=== PATIENT | male | born 1970 | race African-American/Black ===

== ENCOUNTER 2016-03-24 08:45 | Day surgery (SDC) | payer OTHER ==
[~2016-03-24] VITALS: Ht 182.9 cm; Wt 77.1 kg
[2016-03-24] MEDS ORDERED: ACETAMINOPHEN325 MG PO (09:47)
[2016-03-24 09:59] VITALS: BP 140/92; Ht 182.9 cm; Wt 77.1 kg
[2016-03-24 11:39] LABS: BASOPHILS 0.2 % (0.0-2.0); EOSINOPHILS 1.9 % (0-7); HEMOGLOBIN 11.9 g/dL (13.5-17.5); IMMATURE GRANULOCYTES 0.5 % (0-5); LYMPHOCYTES 43.5 % (15-50); MCH 31.2 pg (26.0-34.0); MCV 91.9 fL (80.0-100.0); MEAN PLATELET VOLUME 11.2 fL (7.4-10.4); MONOCYTES 9.5 % (2-11); NEUTROPHILS 44.4 % (40-80); PLATELET COUNT 183 10x3/uL (130-400); RBC 3.81 10x6/uL (4.20-6.10); RDW 14.4 % (11.5-14.5); WBC 4.2 10x3/uL (4.8-10.8)
[2016-03-24 11:46] LABS: CALC OSMOLALITY 280 mosm/kg (275-300); CHLORIDE - SERUM 106 mmol/L (98-107); CREATININE - SERUM 0.8 mg/dL (0.6-1.3); GLUCOSE 86 mg/dL (74-106); POTASSIUM - SERUM 4.1 mmol/L (3.5-5.1); SODIUM 142 mmol/L (136-145); UREA NITROGEN 9 mg/dL (7-18); eGFR NON AFRICAN AMERICAN > 90 mL/min (90-120)
--- NOTE | 2016-03-24 14:57 | HP ---
PATIENT: Chris BROUSSARD MEDICAL RECORD: [id number] ACCOUNT: [id number] LOCATION:NIR : 74 ADMISSION DATE: 03/24/16 HISTORY AND PHYSICAL EXAMINATION PREOPERATIVE HISTORY AND PHYSICAL HISTORY OF PRESENT ILLNESS: Danie is a 45-year-old male who has a history of a left-sided neck abscess, presumably an infected sebaceous cyst. He is being admitted for excision of the large sebaceous cyst on the left side of the neck. PAST SURGICAL HISTORY: Includes hypertension. CURRENT MEDICATIONS: Percocet, Bactrim and Zofran. ALLERGIES: No known drug allergies. PHYSICAL EXAMINATION: FACE: Normal, symmetric, no lesions. EYES: Sclerae and conjunctivae are normal. EARS: Canals and TMs are normal. NOSE: No mass, polyps or drainage. ORAL CAVITY AND OROPHARYNX: Normal. No trismus. Tongue protrudes midline. NECK: He has what feels like a sebaceous cyst in the diaz area anterior to the sternocleidomastoid in the submandibular area on the left side. CHEST: Clear. CARDIOVASCULAR: Regular rate and rhythm, no murmur. EXTREMITIES: Normal. IMPRESSION AND PLAN: Excision of left neck mass appears to be sebaceous cyst. TRANSINT:[id number] Voice Confirmation ID: [id number] DOCUMENT ID: [id number] ADILSON KWOK MD at 1457 CC: [id number] DICTATION DATE: 03/20/16 1541 COLOR ARTIST: 03/20/16 1743 REG [facility] [address] [place] [address]
--- NOTE | 2016-03-24 14:57 | OP ---
PATIENT NAME: Chris BROUSSARD MEDICAL RECORD: [id number] :74 LOCATION:D[facility] ADMISSION DATE: SURGEON: ALEX FAIRCHILD MD DATE OF OPERATION: 03/24/2016 PREOPERATIVE DIAGNOSIS: Left neck mass, previously infected sebaceous cyst. POSTOPERATIVE DIAGNOSIS: Left neck mass, previously infected sebaceous cyst. PROCEDURE: Excision, left neck mass. SURGEON: Alex Fairchild MD ANESTHESIA: General LMA. COMPLICATIONS: None. BLOOD LOSS: 2 cc. PACKING: None. DISPOSITION: Recovery, stable. DESCRIPTION OF PROCEDURE: The patient brought to the operating room and placed in supine position, sedated and intubated by anesthesia. Head was turned to the right. The left neck was cleaned with alcohol. The area around the mass was injected with a total of 1 cc of 1% lidocaine with 1:100,000 epinephrine. The left neck was then prepped and draped in the usual sterile fashion. A 15 blade was used to make an elliptical incision in the horizontal plane in the neck, below the pore obviously associated with this sebaceous cyst that has been infected multiple times. A 15 blade was used to make an incision right down on to the sebaceous cyst circumferentially. Then, double prong skin hook was used as retraction and marked circumferentially around this, right on the cyst wall, which was very obvious, dissecting out the entire mass completely intact. With the cyst out, the wound was completely cleaned and dried. No bleeding. It was irrigated with saline repeatedly. Then, the wound was closed with interrupted subcutaneous 4-0 Vicryl and then the skin was closed with running subcuticular 5-0 Prolene. Steri-Strips and Mastisol were applied. He was awakened, extubated, and transported to recovery in good condition. No complications. TRANSINT:[id number] Voice Confirmation ID: [id number] DOCUMENT ID: [id number] ALEX FAIRCHILD MD at 1457 CC: [id number] DICTATION DATE: 03/24/16 1321 IMAGING SYSTEM ADMINISTRATOR: 03/24/16 1353 REG [facility] [address] [place] [address]
== END 2016-03-24 14:55 | disposition home or self-care (01) ==
LOC: D.OPS 08:45 → D.PAN 11:10 → D.OPS 11:45 → D.PAN 11:45 → D.OPS 14:55 → D.PAN 15:00
PROVIDERS: Otolaryngology
DX: R22.1 Localized swelling, mass and lump, neck (principal)

== ENCOUNTER 2016-12-19 23:14 | Emergency (ER) | payer SELFPAY ==
[~2016-12-19 23:14] MED LIST: ACETAMINOPHEN325 MG PO
== END 2016-12-20 00:22 | disposition home or self-care (01) ==
LOC: D.ER 23:14
DX: G43.909 Migraine, unspecified, not intractable, without status migrainosus (principal)